=== PATIENT | male | born 1990 | race Caucasian/White ===

== ENCOUNTER 2017-08-07 09:46 | Emergency (ER) | payer SELFPAY ==
[~2017-08-07 09:46] MED LIST: ISOVUE-370 76%-LOCM 1 ML ONE
[2017-08-07] MEDS ORDERED: Dexamethasone 4 mg/ml Vial ONE (10:20)
[2017-08-07] MEDS ORDERED: Ketorolac Tromethamine 30 MG/ML VIAL ONE (10:20)
[2017-08-07 10:38] LABS: #Basophils 0.1 thou/uL (0.0-0.2); #Eosinphils 0.1 thou/uL (0.0-0.7); #Lymphocytes 1.4 thou/uL (1.20-3.40); #Neutrophils 13.1 thou/uL (1.40-6.50); %Basophils 0.5 % (0.0-1.0); %Eosinophils 0.9 % (0.0-10.0); %Lymphocytes 9.1 % (21.0-51.0); %Monocytes 6.3 % (0.0-10.0); %Neutrophils 83.2 % (42.0-75.0); Hemoglobin 15.3 g/dL (14.0-18.0); Mean Corpuscular HGB CONC 31.6 g/dL (32.0-36.0); Mean Corpuscular Volume 94.8 fl (80.0-94.0); Platelet Count 180 thou/uL (130-400); RBC Distribution Width 12.2 % (11.5-14.5); White Blood Cell (WBC) Count 15.7 thou/uL (4.8-10.8)
[2017-08-07 10:54] LABS: Anion Gap 13 mmol/L (10-20); BUN (Urea Nitrogen) 18 mg/dL (8.9-20.6); Calc. Creatinine Clearance 0 mL/min (70-130); Calcium 9.9 mg/dL (7.8-10.44); Carbon Dioxide 26 mmol/L (22-29); Chloride 104 mmol/L (98-107); Estimated GFR-MDRD Greater than 90; Glucose 111 mg/dL (70-105); Potassium 3.8 mmol/L (3.5-5.1); Sodium 139 mmol/L (136-145)
[2017-08-07] MEDS ORDERED: Bicillin LA 2.4 MILL.UNITS/4 ML SYRINGE ONE (11:49)
--- NOTE | 2017-08-07 11:57 | CT ---
CT NECK SOFT TISSUE WITH CONTRAST: Date: 08/07/17 HISTORY: Tonsillar abscess. COMPARISON: None. FINDINGS: The adenoids are enlarged. Both palatine tonsils are markedly enlarged. No definite intratonsillar or peritonsillar abscess is appreciated. There is mild effacement of the parapharyngeal recesses bilate rally. There is asymmetric right and left cervical adenopathy, which may be reactive in nature. Alignment of the cervical spine is normal. No fracture. There is erosion around the left mandibular incompletely erupted third molar. There is a large erosio n of the crown of the right maxillary third molar. There are mucosal retention cysts of the of the left maxillary sinus. No abnormal intracranial area of enhancement. IMPRESSION: 1. CT findings of acute tonsillitis with characteristic tiger-striping of both palatine tonsils. No peritonsillar abscess. 2. Reactive cervical adenopathy. 3. Large erosion of the right maxillary and third molar crown. 4. Lucency erosion around the incompletely erupted right mandibular third molar. POS: [id number]
== END 2017-08-07 12:47 | disposition home or self-care (01) ==
LOC: ERS 09:46
DX: J10.1 Influenza due to other identified influenza virus with other respiratory manifestations (principal); F17.210 Nicotine dependence, cigarettes, uncomplicated
CPT/HCPCS: 36415; 70491; 80048; 85025; 87430; 87804; 96372; 96374; 96375; J0561; J1100; J1885

== ENCOUNTER → 2021-10-08 | Day surgery (SDC) | payer SELFPAY ==
[~2021-10-08] MED LIST changes: +Dexamethasone 20 MG/5 ML VIAL ONE; +Fentanyl 100 MCG/2 ML VIAL ONE; -ISOVUE-370 76%-LOCM 1 ML ONE; +Iopamidol 30 ML ONE; +Lidocaine 1% PF 5 ML VIAL ONE; +Ondansetron PF 4 MG/2 ML Vial ONE; +PROPOFOL 200 MG/20 ML VIAL ONE; +ceFAZolin (BATCH) 2 GM/100 ML BAG ONE; +fentaNYL Citrate/PF 100 MCG/2 ML SYRINGE ONE
== END | disposition home or self-care (01) ==
LOC: EDSTATUS 15:43 → SDC 15:48
PROVIDERS: ATTEND Urology
PROC: 0T778DZ Dilation of Left Ureter with Intraluminal Device, Via Natural or Artificial Opening Endoscopic (ICD-10-PCS; principal; 2021-10-08)
DX: N13.2 Hydronephrosis with renal and ureteral calculous obstruction (principal); Q64.8 Other specified congenital malformations of urinary system; I10 Essential (primary) hypertension; Z79.899 Other long term (current) drug therapy
CPT/HCPCS: 74420; C2617; J0690; J1100; J2405; J2704; J3010; Q9967

== ENCOUNTER 2021-10-14 11:40 | Outpatient (CLI) | payer SELFPAY ==
[2021-10-14 12:38] LABS: Hemoglobin 13.8 g/dL (13.5-17.5); Mean Corpuscular HGB CONC 32.3 g/dL (32.0-36.0); Mean Corpuscular Hemoglobin 29.9 pg (27.0-33.0); Mean Corpuscular Volume 92.6 fl (81.2-95.1); Mean Platelet Volume 10.5 fl (7.4-10.4); Platelet Count 218 10x3/uL (150-450); RBC Distribution Width 12.7 % (11.5-14.5); Red Blood Cell (RBC) Count 4.61 10x6/uL (4.32-5.72); White Blood Cell (WBC) Count 7.4 10x3/uL (3.5-10.5)
[2021-10-14 13:05] LABS: Anion Gap 13 mmol/L (10-20); BUN (Urea Nitrogen) 16 mg/dL (8.9-20.6); Calc. Creatinine Clearance 0 mL/min (70-130); Calcium 9.3 mg/dL (7.8-10.44); Carbon Dioxide 26 mmol/L (22-29); Chloride 104 mmol/L (98-107); Glucose 90 mg/dL (70-105); Potassium 4.2 mmol/L (3.5-5.1); Sodium 139 mmol/L (136-145)
[2021-10-15 01:01] LABS: SARS-CoV-2 PCR by NAA Not Detected (NotDetected)
== END 2021-10-14 11:41 | disposition home or self-care (01) ==
LOC: LABBT 11:40
PROVIDERS: ATTEND Urology
DX: Z01.812 Encounter for preprocedural laboratory examination (principal); Z20.822 Contact with and (suspected) exposure to COVID-19
CPT/HCPCS: 80048; 85027; 87086; U0003; U0005

== ENCOUNTER 2021-10-18 08:40 | Day surgery (SDC) | payer OTHER ==
[2021-10-14 10:23] VITALS: BMI 38.5
[2021-10-18] MEDS ORDERED: Levofloxacin 500 mg/D5W 100 ml Premix Bag ONE (11:20)
[2021-10-18] MEDS ORDERED: Fentanyl 250 MCG/5 ML VIAL ONE (11:23)
[2021-10-18] MEDS ORDERED: Ondansetron PF 4 MG/2 ML Vial ONE (11:28)
[2021-10-18] MEDS ORDERED: PROPOFOL 200 MG/20 ML VIAL ONE (11:28)
[2021-10-18] MEDS ORDERED: Dexamethasone 20 MG/5 ML VIAL ONE (11:28)
[2021-10-18] MEDS ORDERED: Lidocaine 1% PF 5 ML VIAL ONE (11:28)
[2021-10-18] MEDS ORDERED: Ketorolac Tromethamine 30 MG/ML VIAL ONE (11:28)
[2021-10-18] MEDS ORDERED: Iopamidol 45 ML ONE (12:58)
[2021-10-18] MEDS ORDERED: Meperidine HCl/PF 25 MG/ML VIAL ONE (13:28)
[2021-10-18] MEDS ORDERED: Fentanyl 100 MCG/2 ML VIAL ONE (13:35)
[2021-10-18] MEDS ORDERED: HYDROcodone/Acetaminophen 5/325 mg Tablet ONE (14:21)
== END 2021-10-18 14:50 | disposition home or self-care (01) ==
LOC: SDC 08:40
PROVIDERS: ATTEND Urology
PROC: 0T778DZ Dilation of Left Ureter with Intraluminal Device, Via Natural or Artificial Opening Endoscopic (ICD-10-PCS; principal; 2021-10-18)
PROC: 0TC78ZZ Extirpation of Matter from Left Ureter, Via Natural or Artificial Opening Endoscopic (ICD-10-PCS; principal; 2021-10-18)
DX: N20.1 Calculus of ureter (principal); Q62.5 Duplication of ureter; I10 Essential (primary) hypertension; Z79.2 Long term (current) use of antibiotics; Z79.899 Other long term (current) drug therapy
CPT/HCPCS: 74420; 82365; 88300; C2617; J1100; J1885; J1956; J2175; J2405; J2704; J3010; Q9967

== ENCOUNTER 2021-10-30 19:52 | Inpatient (IN) | payer SELFPAY ==
[2021-10-30 20:14] LABS: #Eosinphils 0.2 thou/uL (0.0-0.7); #Lymphocytes 1.9 thou/uL (1.20-3.40); #Monocytes 1.2 thou/uL (0.11-0.59); %Basophils 0.3 % (0.0-1.0); %Eosinophils 1.6 % (0.0-10.0); %Lymphocytes 18.2 % (21.0-51.0); %Monocytes 11.7 % (0.0-10.0); %Neutrophils 68.2 % (42.0-75.0); Hemoglobin 14.9 g/dL (14.0-18.0); Mean Corpuscular HGB CONC 32.9 g/dL (32.0-36.0); Mean Corpuscular Hemoglobin 31.4 pg (27.0-31.0); Mean Corpuscular Volume 95.3 fL (78.0-98.0); Mean Platelet Volume 8.5 fL (7.4-10.4); Platelet Count 183 thou/uL (130-400); RBC Distribution Width 11.8 % (11.5-14.5); Red Blood Cell (RBC) Count 4.74 mill/uL (4.70-6.10); White Blood Cell (WBC) Count 10.3 thou/uL (4.8-10.8)
[2021-10-30 20:23] LABS: INR-International Normal Ratio 0.9; Prothrombin Time 12.5 sec (12.0-14.7)
[2021-10-30 20:35] LABS: ALT (SGPT) 15 U/L (8-55); AST (SGOT) 24 U/L (5-34); Albumin 4.2 g/dL (3.5-5.0); Alkaline Phosphatase 78 U/L (40-110); Anion Gap 17 mmol/L (10-20); BUN (Urea Nitrogen) 19 mg/dL (8.9-20.6); Bilirubin, Total 0.3 mg/dL (0.2-1.2); Calc. Creatinine Clearance 0 mL/min (70-130); Calcium 9.1 mg/dL (7.8-10.44); Carbon Dioxide 21 mmol/L (22-29); Chloride 104 mmol/L (98-107); Globulin 3.3 g/dL (2.4-3.5); Glucose 107 mg/dL (70-105); Potassium 4.8 mmol/L (3.5-5.1); Protein, Total 7.5 g/dL (6.0-8.3); Sodium 137 mmol/L (136-145)
[2021-10-30] MEDS ORDERED: Cefepime 2 GM VIAL ONE (20:56)
[2021-10-30] MEDS ORDERED: Ondansetron PF 4 MG/2 ML Vial ONE (20:56)
[2021-10-30] MEDS ORDERED: Morphine 4 MG/ML VIAL ONE (20:56)
[2021-10-30] MEDS ORDERED: Acetaminophen 500 MG TAB ONE (21:26)
[2021-10-30] MEDS ORDERED: Ketorolac Tromethamine 30 MG/ML VIAL ONE (21:26)
[2021-10-30 22:21] LABS: Bacteria/HPF None Seen HPF (None Seen); Bilirubin Negative (Negative); Blood, Urine 3+ (Negative); Clarity Extra Turbid (Clear); Glucose, Urine (Dipstick) Normal (Negative); Ketone, Urine Negative (Negative); Leukocyte 500 Leu/uL (Negative); Nitrite Negative (Negative); Protein, Urine (Dipstick) 100 mg/dL (Neg-Trace); RBC/HPF Greater than 50 HPF (0-3); Specific Gravity, Urine 1.018 (1.002-1.036); Squamous Epithelial None Seen HPF (0-3); Urobilinogen Normal mg/dL (Less than 2)
[2021-10-30] MEDS ORDERED: Acetaminophen 325 MG TAB PO PRN (23:45)
[2021-10-30] MEDS ORDERED: Ondansetron PF 4 MG/2 ML Vial IVP PRN (23:45)
[2021-10-30] MEDS ORDERED: Ondansetron ODT 4 MG TAB SL PRN (23:45)
[2021-10-31 00:36] VITALS: BMI 36.6
[2021-10-31] MEDS ORDERED: Acetaminophen 650 MG Suppository PR PRN (00:47)
[2021-10-31] MEDS: HYDROcodone/Acetaminophen 5/325 mg Tablet PO PRN ×6 (01:23→23:34)
[2021-10-31 01:27] LABS: SARS-CoV-2 NAA Rapid Test Not Detected (NotDetected)
[2021-10-31] MEDS: Sodium Chloride 0.9% 1,000 ML IV SCH ×3 (05:17→19:38)
[2021-10-31] MEDS: Cefepime 2 GM in Sodium Chloride 0.9% 100 ML IVPB SCH ×2 (05:57→17:46)
[2021-10-31 06:01] LABS: Anion Gap 12 mmol/L (10-20); BUN (Urea Nitrogen) 15 mg/dL (8.9-20.6); Calc. Creatinine Clearance 211 mL/min (70-130); Calcium 8.7 mg/dL (7.8-10.44); Carbon Dioxide 26 mmol/L (22-29); Chloride 106 mmol/L (98-107); Glucose 90 mg/dL (70-105); Potassium 3.7 mmol/L (3.5-5.1); Sodium 140 mmol/L (136-145)
[2021-10-31 08:07] LABS: Hemoglobin 13.8 g/dL (14.0-18.0); Mean Corpuscular HGB CONC 31.9 g/dL (32.0-36.0); Mean Corpuscular Hemoglobin 30.7 pg (27.0-31.0); Mean Corpuscular Volume 96.3 fL (78.0-98.0); Mean Platelet Volume 8.6 fL (7.4-10.4); Platelet Count 168 thou/uL (130-400); RBC Distribution Width 11.8 % (11.5-14.5); Red Blood Cell (RBC) Count 4.49 mill/uL (4.70-6.10); White Blood Cell (WBC) Count 7.7 thou/uL (4.8-10.8)
[2021-10-31 08:08] LABS: #Eosinphils 0.2 thou/uL (0.0-0.7); #Lymphocytes 1.6 thou/uL (1.20-3.40); #Monocytes 0.9 thou/uL (0.11-0.59); #Neutrophils 5.1 thou/uL (1.40-6.50); %Basophils 0.4 % (0.0-1.0); %Eosinophils 2.5 % (0.0-10.0); %Lymphocytes 20.1 % (21.0-51.0); %Monocytes 11.7 % (0.0-10.0); %Neutrophils 65.4 % (42.0-75.0)
[2021-10-31] MEDS ORDERED: cefTRIAXone\\ROCEPHIN 2 GM in Sodium Chloride 0.9% 100 ML IVPB SCH (09:00)
[2021-10-31] MEDS ORDERED: Polyethylene Glycol 3350 17 GM Packet PO PRN (12:19)
[2021-10-31] MEDS: Famotidine 20 MG TAB PO SCH (20:28)
[2021-10-31] MEDS: Senokot S 8.6-50 MG TAB PO SCH (20:29)
[2021-10-31] MEDS ORDERED: Lisinopril 20 MG TAB PO SCH (21:00)
[2021-10-31] MEDS ORDERED: Senokot S 8.6-50 MG TAB PO SCH (21:00)
[2021-11-01] MEDS: Sodium Chloride 0.9% 1,000 ML IV SCH (02:24)
[2021-11-01] MEDS: HYDROcodone/Acetaminophen 5/325 mg Tablet PO PRN ×2 (04:13→08:28)
[2021-11-01] MEDS: Cefepime 2 GM in Sodium Chloride 0.9% 100 ML IVPB SCH (06:09)
[2021-11-01 07:52] VITALS: BP 143/93; TEMP 98.2
[2021-11-01] MEDS: Senokot S 8.6-50 MG TAB PO SCH (08:30)
[2021-11-01] MEDS: Famotidine 20 MG TAB PO SCH (08:31)
== END 2021-11-01 12:10 | disposition home or self-care (01) | DRG 698 ==
LOC: ERS 19:52 → MSONC 23:33 → OBSVTOIN 11-01 10:28
PROVIDERS: ADMIT Internal Medicine; ATTEND Internal Medicine
DX: T83.592A Infection and inflammatory reaction due to indwelling ureteral stent, initial encounter (principal); A41.9 Sepsis, unspecified organism; N39.0 Urinary tract infection, site not specified; Z20.822 Contact with and (suspected) exposure to COVID-19; I10 Essential (primary) hypertension; R31.0 Gross hematuria; E66.9 Obesity, unspecified; Y83.1 Surgical operation with implant of artificial internal device as the cause of abnormal reaction of the patient, or of later complication, without mention of misadventure at the time of the procedure; Z87.442 Personal history of urinary calculi; Z68.36 Body mass index [BMI] 36.0-36.9, adult; Z79.899 Other long term (current) drug therapy; Z98.890 Other specified postprocedural states
CPT/HCPCS: 36415; 74176; 80048; 80053; 81003; 81015; 83605; 85025; 85610; 85730; 87040; 87086; 96365; 96375; J0692; J1885; J2270; J2405; J3490; J7050; U0002